=== PATIENT | female | born 1945 | race Caucasian/White ===

== ENCOUNTER 2019-05-10 09:38 | Emergency (ER) | payer MEDICARE ==
[2019-05-10 10:06] VITALS: BP 164/62
[2019-05-10] MEDS ORDERED: CHERRY SYRUP 10 ML UDC PO ONE (11:48)
[2019-05-10] MEDS ORDERED: DEXAMETHASONE 10 MG/ML VIAL PO STA (11:48)
[2019-05-10] MEDS ORDERED: KETOROLAC 60 MG/2 ML VIAL IM STA (11:48)
--- NOTE | 2019-05-10 11:51 | ED Physician Documentation ---
PD HPI BACK PAIN - Stated complaint Stated Complaint: BACK PX - Chief complaint Chief Complaint: Back Pain - History obtained from History obtained from: Patient, Family - History of Present Illness Timing - onset: How many days ago (8) Timing - duration: Days (8) Timing - details: Abrupt onset, Still present Location: Lower, Right, Left Quality: Pain, Spasm, Sharp, Similar to prior episodes Associated symptoms: No: Fever, Weakness, Numbness, Incontinent of urine, Unable to urinate, Hematuria, Incontinent of stool Improves with: Rest, Ice, Position, Meds Worsened by: Movement Contributing factors: Other (lifted a suitcase) Similar symptoms before: Diagnosis (lumbar disc disease) Recently seen: Not recently seen - Additional information Additional information: Previously well 73-year-old female who has had back surgery has lifted a heavy suitcase on the 10 days ago and since that time she has had some pain in her lower back. The pain is actually gotten a bit worse and now she is come to the emergency department for evaluation. She did call her regular doctor was prescribed some Flexeril which she states has not helped with the pain. Review of Systems Constitutional: denies: Fever Eyes: denies: Decreased vision Nose: denies: Congestion Respiratory: denies: Cough GI: denies: Vomiting : denies: Dysuria, Frequency Skin: denies: Rash Musculoskeletal: reports: Back pain. denies: Neck pain, Extremity pain Neurologic: denies: Generalized weakness, Focal weakness, Numbness PD PAST MEDICAL HISTORY - Past Medical History Respiratory: Asthma - Past Surgical History Past Surgical History: Yes Ortho: Spine surgery - Present Medications Home Medications: Ambulatory Orders Medication Instructions Recorded Confirmed Albuterol Sulfate [Proair Hfa] INH PRN 10/11/12 10/11/12 Atorvastatin Calcium 10 mg PO DAILY 10/11/12 10/11/12 Fluticasone Propionate [Flovent 220 mcg INH BID 10/11/12 10/11/12 Diskus] HYDROcod/ACETAM 5/325 [Vicodin 1 - 2 ea PO Q6H PRN #20 tablet 10/11/12 5/325] Hyoscyamine [Levsin] 0.125 mg SL DAILY PRN 10/11/12 10/11/12 Meclizine [Antivert] 25 mg PO PRN 10/11/12 10/11/12 Montelukast Sodium 10 mg PO DAILY 10/11/12 10/11/12 Omeprazole [Prilosec] 20 mg PO DAILY 10/11/12 10/11/12 Salmeterol [Serevent] 50 mcg INH BID 10/11/12 10/11/12 Aspirin [Aspir 81] 81 mg PO DAILY 12/18/12 12/18/12 Aspirin/Acetaminophen/Caffeine 1 each PO PRN 12/18/12 12/18/12 [Excedrin Migraine Geltabs] Hydrocodone/Acetaminophen 1 - 2 each PO Q6H PRN #14 tablet 05/10/19 [Hydrocodon-Acetaminophen 5-325] - Allergies Allergies/Adverse Reactions: Allergies Allergy/AdvReac Type Severity Reaction Status Date / Time codeine [Codeine] AdvReac Mild Nausea Verified 05/10/19 10:06 - Social History Does the pt smoke?: No Smoking Status: Never smoker Does the pt have substance abuse?: No - POLST Patient has POLST: No PD ED PE NORMAL - Vitals Vital signs reviewed: Yes (hypertensive ) - General General: No acute distress, Well developed/nourished - HEENT HEENT: Atraumatic, PERRL, EOMI - Respiratory Respiratory: No respiratory distress - Back Back: No CVA TTP, No spinal TTP, Other (There is tearing tenderness to the paraspinous muscles at the very lower end of the lumbar spine bilaterally. There is no midline tenderness and there is no tenderness that extends into the sciatic notch.) - Derm Derm: Normal color, Warm and dry, No rash - Extremities Extremities: No deformity, No edema - Neuro Neuro: Alert and oriented X 3, copy lathe tender 2-12 intact, No motor deficit, No sensory deficit, Normal speech Eye Opening: Spontaneous Motor: Obeys Commands Verbal: Oriented GCS Score: 15 - Psych Psych: Normal mood, Normal affect Results - Vitals Vitals: Vital Signs - 24 hr 05/10/19 10:03 Temperature 37.0 C Heart Rate 79 Respiratory 18 Rate Blood Pressure 164/62 H O2 Saturation 99 Oxygen O2 Source Room air PD MEDICAL DECISION MAKING - ED course Complexity details: re-evaluated patient, considered differential, d/w patient, d/w family ED course: 73-year-old female with lower lumbar pain that appears to be muscle spasm has not had relief with Flexeril. She is administered dexamethasone and Toradol here in the emergency department we will add some narcotic pain reliever into her care. Departure - Departure Disposition: 01 Home, Self Care Clinical Impression: Lumbar paraspinal muscle spasm Instructions: ED Low Back Pain Injury Follow-Up: Handy Wilder MD [Primary Care Provider] - Prescriptions: Hydrocodone/Acetaminophen [Hydrocodon-Acetaminophen 5-325] 1 - 2 each PO Q6H PRN #14 tablet PRN Reason: pain
== END 2019-05-10 12:25 | disposition home or self-care (01) ==
LOC: ED 09:38
DX: M62.830 Muscle spasm of back (principal)
CPT/HCPCS: 96372; 99283; 99284; A9270